=== PATIENT | female | born 1980 | race African-American/Black ===

== ENCOUNTER 2020-11-06 01:10 | Emergency (ER) | payer OTHER ==
[2020-11-06] MEDS ORDERED: Ketorolac Tromethamine 30 MG/ML VIAL ONE (02:21)
== END 2020-11-06 02:40 | disposition home or self-care (01) ==
LOC: CSHERS 01:10
DX: M25.511 Pain in right shoulder (principal)
CPT/HCPCS: 96372; 99283; J1885

== ENCOUNTER 2023-03-08 21:00 | Emergency (ER) | payer OTHER ==
[2023-03-08 22:34] LABS: Hematocrit 37.1 % (34.9-44.5); Hemoglobin 12.1 g/dL (12.0-15.5); Mean Corpuscular HGB CONC 32.6 g/dL (32.0-36.0); Mean Corpuscular Hemoglobin 29.2 pg (27.0-33.0); Mean Corpuscular Volume 89.6 fl (81.6-98.3); Mean Platelet Volume 11.3 fl (7.4-10.4); Platelet Count 229 10x3/uL (150-450); RBC Distribution Width 12.9 % (11.5-14.5); Red Blood Cell (RBC) Count 4.14 10x6/uL (3.90-5.03); White Blood Cell (WBC) Count 9.1 10x3/uL (3.5-10.5)
[2023-03-08 22:37] LABS: MDiff Complete? YES
[2023-03-08 22:47] LABS: ALT (SGPT) 11 U/L (8-55); AST (SGOT) 19 U/L (5-34); Alkaline Phosphatase 63 U/L (40-110); Anion Gap 18 mmol/L (10-20); BUN (Urea Nitrogen) 5 mg/dL (7.0-18.7); Bilirubin, Total 0.4 mg/dL (0.2-1.2); Calc. Creatinine Clearance 0 mL/min (70-130); Calcium 9.9 mg/dL (7.8-10.44); Carbon Dioxide 23 mmol/L (22-29); Chloride 107 mmol/L (98-107); Estimated GFR 103; Glucose 91 mg/dL (70-105); Lipase 16 U/L (8-78); Potassium 3.7 mmol/L (3.5-5.1); Sodium 144 mmol/L (136-145)
[2023-03-08 22:53] LABS: Platelet Adequacy Comment Appears Adequate; RBC Morph Comment Within Normal Limits; Troponin I Less than 0.010 ng/mL (< 0.028)
[2023-03-08 22:55] LABS: Band 3 % (5-11); Lymphocytes 20 % (21-51); Monocytes 8 % (0-10); Neutrophil 69 % (42-75)
[2023-03-08] MEDS ORDERED: Ondansetron PF 4 MG/2 ML Vial ONE (22:58)
[2023-03-08] MEDS ORDERED: Morphine 4 MG/ML VIAL ONE (22:58)
[2023-03-08] MEDS ORDERED: Ketorolac Tromethamine 30 MG/ML VIAL ONE (22:59)
[2023-03-08 23:12] LABS: SARS-CoV-2 NAA Rapid Test Not Detected (NotDetected)
== END 2023-03-08 23:56 | disposition home or self-care (01) ==
LOC: CSHERS 21:00
DX: R11.10 Vomiting, unspecified (principal); R05.9 Cough, unspecified; F17.290 Nicotine dependence, other tobacco product, uncomplicated; Z20.822 Contact with and (suspected) exposure to COVID-19
CPT/HCPCS: 71045; 80053; 83690; 84484; 85025; 93005; 96374; 96375; J1885; J2270; J2405

== ENCOUNTER 2023-04-29 15:13 | Emergency (ER) | payer OTHER | END 2023-04-29 16:19 | disposition home or self-care (01) | LOC: CSHERS 15:13 | DX: L03.314 Cellulitis of groin (principal); F17.290 Nicotine dependence, other tobacco product, uncomplicated | CPT/HCPCS: 99282 ==

== ENCOUNTER 2023-05-26 13:52 | Emergency (ER) | payer OTHER ==
[2023-05-26] MEDS ORDERED: Dexamethasone 10 MG/ML VIAL ONE (14:27)
== END 2023-05-26 14:31 | disposition home or self-care (01) ==
LOC: CSHERS 13:52
DX: J02.9 Acute pharyngitis, unspecified (principal); F17.290 Nicotine dependence, other tobacco product, uncomplicated
CPT/HCPCS: 99282; J1100

== ENCOUNTER 2025-02-13 15:10 | Emergency (ER) | payer MEDICAID, OTHER ==
[2025-02-13] MEDS ORDERED: Ketorolac Tromethamine 30 MG (1 mL) VIAL ONE (16:03)
[2025-02-13] MEDS ORDERED: Dexamethasone 10 MG/ML VIAL ONE (16:03)
== END 2025-02-13 16:20 | disposition home or self-care (01) ==
LOC: CSHERS 15:10
DX: K12.0 Recurrent oral aphthae (principal); F17.290 Nicotine dependence, other tobacco product, uncomplicated
CPT/HCPCS: 96372; 99282; J1100; J1885